=== PATIENT | female | born 2000 | race Two or more races ===

== ENCOUNTER 2024-07-02 17:44 | Emergency (ER) | payer MEDICAID, SELFPAY ==
[2024-07-02 18:18] VITALS: BP 154/90; PULSE 99; RESP 18; TEMP 37.1; O2SAT 97; BMI 49.4
--- NOTE | 2024-07-02 18:38 | XR_ITS ---
Examination: CT soft tissue neck, without intravenous contrast. 2-D coronal reconstructions. 2-D sagittal reconstructions. Date and time of exam :July 02, 2024 1958 hrs. Indications: Patient took pills 2 days ago which the patient states are stuck in the throat. CTDI: vol (mGy):16.8 DLP: (mGycm):446 Technique: 1.25 mm axial sections of the neck of the obtained. Coronal and sagittal reconstructions have been obtained. Intravenous contrast not administered Low dose protocols were performed. One or more of the following dose reduction techniques were used; automated exposure control, adjustment of the mA and/or KV according to patient size, use of iterative reconstruction technique. Findings: Symmetrical nasopharynx oropharynx Hyoid bone intact Supraglottic region unremarkable The larynx appears normal No opaque foreign body depicted Esophagus does not appear thickened No pathologic lymphadenopathy Impression: No opaque foreign body noted Given the patient's presentation, recommend elective standard esophagram follow-up to assess for stricture at the gastroesophageal junction
--- NOTE | 2024-07-02 18:45 | EDNOTE_ITS ---
Upper Respiratory Inf. RME/HPI General Chief Complaint: Dental/Oral/Throat Stated Complaint: BELIEVES PILL IS STUCK IN HER THROAT X2 DAYS Time Seen by Provider: 07/02/24 18:38 Arrival date/time: 07/02/24 17:44 23F with history of anxiety presents to ED with 3 days of sensation of something stuck in throat. Patient believes it was an ibuprofen tablet. Patient states sensation comes and goes and her anxiety is making it worse. Patient denies N/V. Limitations: no limitations Related Data Allergies Allergy/AdvReac Type Severity Reaction Status Date / Time No Known Allergies Allergy Verified 07/02/24 17:46 Review of Systems Review of Systems Systems Reviewed: All systems reviewed, normal except as documented Constitutional Constitutional: Reports system reviewed and no additional complaints, except as documented, Denies fever(s) and Denies headache(s) ENT Ears, Nose, Mouth, and Throat: Reports as per HPI, Denies disequilibrium, Denies headache(s) and Reports other (sensation in throat) Cardiovascular Cardiovascular: Reports system reviewed and no additional complaints, except as documented, Denies chest pain and Denies dyspnea Respiratory Respiratory: Reports system reviewed and no additional complaints, except as documented, Denies cough and Denies dyspnea Gastrointestinal Gastrointestinal: Reports system reviewed and no additional complaints, except as documented, Denies abdominal pain, Denies nausea and Denies vomiting Neurologic Neurologic: Reports system reviewed and no additional complaints, except as documented, Denies confusion, Denies disequilibrium and Denies headache(s) Psychiatric Psychiatric: Denies confusion Past Medical History Past Medical History CARDIAC: Negative Congestive Heart Failure RESPIRATORY: Negative Chronic Obstructive Pulmonary Disease (COPD) GENITOURINARY: Negative Renal Disease ENDOCRINE: Negative Diabetes Mellitus Type 1 or Diabetes Mellitus Type 2 Social History SMOKING STATUS: Never smoker ED Exam General Limitations: Present no limitations General appearance: Present alert and in no apparent distress Head Head exam: Present atraumatic Eye Eye exam: Present normal appearance, PERRL and EOMI ENT ENT exam: Present normal exam, normal oropharynx and mucous membranes moist Neck Neck exam: Present normal inspection, full ROM and trachea midline Chest Chest inspection: Present normal inspection and symmetric chest wall rise Respiratory Respiratory exam: Present normal lung sounds bilaterally Cardiovascular Cardiovascular exam: Present regular rate, normal rhythm and normal heart sounds Abdominal Exam Abdominal exam: Present soft and normal bowel sounds Extremities Exam Extremities exam: Present normal inspection and full ROM Back Exam Back exam: Present normal inspection and full ROM Neurological Exam Neurological exam: Present alert, oriented X3 and CN II-XII intact Psychiatric Psychiatric exam: Present normal affect and normal mood Skin Skin exam: Present warm, dry, intact and normal color Course Quality Measures none Orders Category Date Time Status CT soft tissue neck wo con Stat Exams 07/02/24 18:38 Completed Vital Signs Vital signs: Vital Signs Temperature 98.7 F 07/02/24 18:18 Pulse Rate 99 07/02/24 18:18 Respiratory Rate 18 07/02/24 18:18 Blood Pressure 154/90 H 07/02/24 18:18 Pulse Oximetry (%) 97 07/02/24 18:18 Oxygen Delivery Method Room Air 07/02/24 18:18 O2 at 97% on RA and WNLs Upper Respiratory Infection MDM Narrative MDM Narrative:: 23F with history of anxiety presents to ED with 3 days of sensation of something stuck in throat. Patient believes it was an ibuprofen tablet. Patient states sensation comes and goes and her anxiety is making it worse. Patient denies N/V. Physical exam clear ENT and lungs. Patient is drinking water, and is afebrile, calm, and alert. CT normal. Constitutional Law Professor given. Patient data External records reviewed:: [facility] previous records Clinical information provided by:: patient Social determinants that could affect healthcare access:: mental health Patient has the following chronic illnesses:: anxiety How is presenting disease/condition affected by chronic disease/condition?: exacerbated by Evaluation data The following diagnostics were reviewed and interpreted by me:: radiology exam(s) Lab and/or radiology exams considered but not ordered:: ordered Interpretation Summary: above Medications / Prescriptions Medications or Prescriptions considered but not ordered:: not ordered Medication administrations:: n/a Consultations Consultation(s) initiated? (list below): No Diagnosis Upper Respiratory Differential Diagnosis: upper respiratory infection, croup, otitis media, sinusitis, viral infection, bronchitis, influenza, pharyngitis and other (FB throat, sensation of FB in throat) Most likely diagnosis given after review of the tests above:: FB sensation in throat Admission Indicated Admission indicated?: not indicated Admission Request Was there a request for admission?: No Disposition Plan Disposition Plan: Discharge Discharge Attestation Discharge Attestation: The patient and all family members were given an opportunity to ask questions and understood the discharge instructions. Discharge instructions specifically effects, indications for sooner follow up or return to the emergency department, and the expected course of current diagnosis. Patient condition: Stable Discharge Plan Plan Patient Disposition: HOME (Self Care) Disposition Comment: Stable Prescriptions/Referrals Referrals: Emmanuel Orourke [Primary Care Provider] - In 1 week Problem List Clinical Impression: Foreign body sensation in throat Patient/Caregiver Discharge Instructions Additional Instructions: Please follow-up with PCP within 24-48 hours and return immediately if symptoms worsen. If problem persists, see PCP for referral to GI for possible EGD. Print Language: Greenlandic Stand Alone Forms: Patient Portal Info Letter PA/LOGISTICS ASSOCIATE Supervising Physician JEROME/FRIDA Supervising Physician: Dr. Nieto
== END 2024-07-02 20:48 | disposition home or self-care (01) ==
PROVIDERS: Emergency Provider Emergency Medicine; PCP Physician Assistant
DX: R09.A2 Foreign body sensation, throat (principal)
CPT/HCPCS: 70490; 99284